=== PATIENT | female | born 1995 | race African-American/Black ===

== ENCOUNTER 2018-12-16 09:35 | Emergency (ER) | payer MEDICAID ==
[~2018-12-16] VITALS: Ht 162.6 cm; Wt 83.7 kg
[~2018-12-16 09:35] MED LIST: VENTOLIN0.09 MG IH
[2018-12-16 09:42] VITALS: BP 141/78; TEMP 98.2
[2018-12-16 10:40] LABS: COLLECTION METHOD CATHETER
[2018-12-16 10:42] LABS: EOS % 0.7 % (0-4.0); GRAN % 48.3 % (42.2-75.2); HEMATOCRIT 40.2 % (37.0-47.0); HEMOGLOBIN 13.5 g/dl (12.5-16.0); LYMPH # 1.6 (1.2-3.4); LYMPH % 38.9 % (20.0-51.0); MEAN CELL VOLUME 93 fl (80.0-100.0); MEAN CORPUSCULAR HEMOGLOBIN 31 pg (27.0-31.0); MEAN CORPUSCULAR HGB CONC 34 g/dl (33.0-37.0); MONO # 0.5 (0.1-0.6); MONO % 10.9 % (1.7-9.3); PLATELET COUNT 347 K/mm3 (130-400); RED BLOOD COUNT 4.31 M/mm3 (4.10-5.30); REDCELL DISTRIBUTION WIDTH-CV 13.3 % (11.5-14.5)
[2018-12-16 10:46] LABS: MUCOUS Present /lpf; PH 6 (5-8); URINE APPEARANCE Hazy; URINE BACTERIA None Seen /hpf; URINE BILIRUBIN Negative (NEGATIVE); URINE BLOOD 2+ (NEGATIVE); URINE COLOR Yellow; URINE GLUCOSE Negative (NEGATIVE); URINE KETONE Negative (NEGATIVE); URINE LEUKOCYTE ESTERASE Trace (NEGATIVE); URINE NITRATE Negative (NEGATIVE); URINE PROTEIN(semi-quant) Negative (NEGATIVE); URINE RBC 20-50 /hpf; URINE UROBILINOGEN Negative (NEGATIVE)
[2018-12-16] MEDS ORDERED: CEPHALEXIN500 M1 PO (10:53)
[2018-12-16 10:58] LABS: ALBUMIN 4.3 gm/dL (3.5-5.0); BILIRUBIN,TOTAL 0.7 mg/dL (0.0-1.0); CALCIUM 9.3 mg/dL (8.4-10.2); CREATININE, serum 0.89 (0.52-1.25); POTASSIUM 3.3 mmol/L (3.4-5.0); TOTAL PROTEIN 7.5 gm/dL (6.4-8.2)
[2018-12-16 11:58] VITALS: PULSE 76
== END 2018-12-16 11:58 | disposition home or self-care (01) ==
LOC: COL.ER 09:35
PROVIDERS: Emergency Medicine
DX: N39.0 Urinary tract infection, site not specified (principal); N93.8 Other specified abnormal uterine and vaginal bleeding; E87.6 Hypokalemia

== ENCOUNTER 2019-01-12 17:48 | Emergency (ER) | payer MEDICAID ==
[~2019-01-12] VITALS: Ht 165.1 cm; Wt 84.1 kg
[~2019-01-12 17:48] MED LIST changes: +CEPHALEXIN500 M1 PO
[2019-01-12 17:51] VITALS: TEMP 99.3
[2019-01-12 18:23] LABS: BASO % 0.5 % (0.0-2.0); EOS % 0.4 % (0-4.0); GRAN # 5.4 (1.4-6.5); GRAN % 73.5 % (42.2-75.2); HEMATOCRIT 37.7 % (37.0-47.0); HEMOGLOBIN 12.7 g/dl (12.5-16.0); LYMPH % 13.1 % (20.0-51.0); MEAN CELL VOLUME 93 fl (80.0-100.0); MEAN CORPUSCULAR HEMOGLOBIN 31 pg (27.0-31.0); MEAN CORPUSCULAR HGB CONC 34 g/dl (33.0-37.0); MEAN PLATELET VOLUME 9.8 fl (7.4-10.4); MONO # 0.9 (0.1-0.6); MONO % 12.2 % (1.7-9.3); PLATELET COUNT 273 K/mm3 (130-400); RED BLOOD COUNT 4.06 M/mm3 (4.10-5.30)
[2019-01-12 18:33] LABS: STREP SCREEN NEGATIVE
[2019-01-12 18:53] LABS: ALANINE AMINOTRANSFERASE 15 U/L (9-52); ALBUMIN 4.5 gm/dL (3.5-5.0); ALKALINE PHOSPHATASE 69 U/L (50-136); ANION GAP 13 mmol/L (7-16); AST,SGOT 32 U/L (15-37); BILIRUBIN,TOTAL 0.9 mg/dL (0.0-1.0); BLOOD UREA NITROGEN 12 mg/dL (7-17); C-REACTIVE PROTEIN 1.6 mg/dL (0.0-0.9); CALCIUM 9.2 mg/dL (8.4-10.2); CARBON DIOXIDE 24 mmol/L (22-30); CHLORIDE 101 mmol/L (98-107); CREATININE, serum 1.02 (0.52-1.25); GLUCOSE 86 mg/dL (74-106); POTASSIUM 3.9 mmol/L (3.4-5.0); SODIUM 139 mmol/L (137-145); TOTAL PROTEIN 7.9 gm/dL (6.4-8.2)
[2019-01-12 19:02] LABS: TROPONIN-I < 0.012 ng/mL (0.000-0.035)
[2019-01-12] MEDS ORDERED: ZITHROMAX Z PA250 MG PO (19:32)
[2019-01-12] MEDS ORDERED: PREDNISONE20 MG PO (19:32)
[2019-01-12] MEDS ORDERED: NEB MC (21:10)
[2019-01-12] MEDS ORDERED: ALBUTEROL1.25 MG/3 IH (21:10)
[2019-01-12] MEDS ORDERED: PROAIR HFA0.09 MG/AC IH (21:11)
[2019-01-12 21:20] VITALS: BP 117/61; PULSE 117
== END 2019-01-12 21:20 | disposition home or self-care (01) ==
LOC: COL.ER 17:48
PROVIDERS: Physician Assistant
DX: J45.901 Unspecified asthma with (acute) exacerbation (principal); I30.9 Acute pericarditis, unspecified
CPT/HCPCS: J1885; J7030; J8540

== ENCOUNTER 2019-01-14 18:01 | Emergency (ER) | payer MEDICAID ==
[~2019-01-14] VITALS: Ht 162.6 cm; Wt 90.9 kg
[~2019-01-14 18:01] MED LIST changes: +ALBUTEROL1.25 MG/3 IH; +NEB MC; +PREDNISONE20 MG PO; +PROAIR HFA0.09 MG/AC IH; +ZITHROMAX Z PA250 MG PO
[2019-01-14 19:03] LABS: C-REACTIVE PROTEIN 0.6 mg/dL (0.0-0.9); PROTHROMBIN TIME 12.1 SECONDS (9.7-12.8)
[2019-01-14 19:05] LABS: PARTIAL THROMBOPLASTIN TIME 29.1 SECONDS (26.0-37.0)
[2019-01-14 19:13] LABS: TROPONIN-I < 0.012 ng/mL (0.000-0.035)
[2019-01-14 19:41] LABS: BASO % 0.1 % (0.0-2.0); GRAN % 92.9 % (42.2-75.2); HEMATOCRIT 37.6 % (37.0-47.0); HEMOGLOBIN 12.7 g/dl (12.5-16.0); LYMPH # 0.5 (1.2-3.4); LYMPH % 5.1 % (20.0-51.0); MEAN CELL VOLUME 92 fl (80.0-100.0); MEAN CORPUSCULAR HEMOGLOBIN 31 pg (27.0-31.0); MEAN CORPUSCULAR HGB CONC 34 g/dl (33.0-37.0); MEAN PLATELET VOLUME 10.2 fl (7.4-10.4); MONO # 0.2 (0.1-0.6); MONO % 1.6 % (1.7-9.3); PLATELET COUNT 335 K/mm3 (130-400); RED BLOOD COUNT 4.09 M/mm3 (4.10-5.30); REDCELL DISTRIBUTION WIDTH-CV 13.2 % (11.5-14.5)
[2019-01-14 19:47] LABS: ALBUMIN 4.3 gm/dL (3.5-5.0); BILIRUBIN,TOTAL 0.5 mg/dL (0.0-1.0); CALCIUM 9.4 mg/dL (8.4-10.2); CREATININE, serum 0.88 (0.52-1.25); POTASSIUM 3.7 mmol/L (3.4-5.0); TOTAL PROTEIN 7.9 gm/dL (6.4-8.2)
[2019-01-14 21:06] LABS: LYMPHOCYTE 7 % (20.0-51.0); NEUTROPHILS 92 % (42.0-75.2)
[2019-01-15 15:41] LABS: COLLECTION METHOD CLEAN CATCH
[2019-01-15 15:54] LABS: MUCOUS Present /lpf; PH 6 (5-8); URINE APPEARANCE Hazy; URINE BACTERIA None Seen /hpf; URINE BILIRUBIN Negative (NEGATIVE); URINE BLOOD 3+ (NEGATIVE); URINE COLOR Yellow; URINE GLUCOSE Negative (NEGATIVE); URINE KETONE 1+ (NEGATIVE); URINE LEUKOCYTE ESTERASE Negative (NEGATIVE); URINE NITRATE Negative (NEGATIVE); URINE PROTEIN(semi-quant) 1+ (NEGATIVE); URINE RBC >50 /hpf; URINE UROBILINOGEN Negative (NEGATIVE)
[2019-01-15 16:00] LABS: TRICYCLIC ANTIDEPRESS URINE NEGATIVE
[2019-01-16 10:00] VITALS: BP 145/88; PULSE 64; TEMP 98.5
== END 2019-01-16 10:10 ==
LOC: COL.ER 18:01
PROVIDERS: Emergency Medicine; Family Medicine
DX: R07.89 Other chest pain (principal); F31.9 Bipolar disorder, unspecified; F17.210 Nicotine dependence, cigarettes, uncomplicated; Z90.89 Acquired absence of other organs
CPT/HCPCS: J1200; J1630; J1885; J2060; J3010

== ENCOUNTER 2019-03-17 16:51 | Emergency (ER) | payer MEDICAID ==
[~2019-03-17] VITALS: Ht 162.6 cm; Wt 86.4 kg
[2019-03-17 16:54] VITALS: TEMP 98.7
[2019-03-17 17:30] LABS: BASO # 0.1 (0.0-0.2); BASO % 0.8 % (0.0-2.0); EOS % 0.3 % (0-4.0); GRAN # 3.5 (1.4-6.5); GRAN % 57.6 % (42.2-75.2); HEMATOCRIT 39.7 % (37.0-47.0); HEMOGLOBIN 13.6 g/dl (12.5-16.0); LYMPH # 1.9 (1.2-3.4); LYMPH % 32.1 % (20.0-51.0); MEAN CELL VOLUME 92 fl (80.0-100.0); MEAN CORPUSCULAR HEMOGLOBIN 31 pg (27.0-31.0); MEAN CORPUSCULAR HGB CONC 34 g/dl (33.0-37.0); MEAN PLATELET VOLUME 9.5 fl (7.4-10.4); MONO # 0.5 (0.1-0.6); PLATELET COUNT 368 K/mm3 (130-400); RED BLOOD COUNT 4.33 M/mm3 (4.10-5.30); REDCELL DISTRIBUTION WIDTH-CV 13.4 % (11.5-14.5)
[2019-03-17 17:43] LABS: ALANINE AMINOTRANSFERASE 10 U/L (9-52); ALBUMIN 4.2 gm/dL (3.5-5.0); ALKALINE PHOSPHATASE 52 U/L (50-136); ANION GAP 14 mmol/L (7-16); AST,SGOT 29 U/L (15-37); BILIRUBIN,TOTAL 0.6 mg/dL (0.0-1.0); BLOOD UREA NITROGEN 17 mg/dL (7-17); CARBON DIOXIDE 22 mmol/L (22-30); CHLORIDE 104 mmol/L (98-107); CREATININE, serum 0.77 (0.52-1.25); GLUCOSE 88 mg/dL (74-106); LIPASE 270 U/L (23-300); POTASSIUM 3.4 mmol/L (3.4-5.0); SODIUM 139 mmol/L (137-145); TOTAL PROTEIN 7.2 gm/dL (6.4-8.2)
[2019-03-17 18:14] VITALS: BP 112/60; PULSE 97
[2019-03-17 18:20] LABS: C-REACTIVE PROTEIN < 0.5 mg/dL (0.0-0.9); TROPONIN-I < 0.012 ng/mL (0.000-0.035)
== END 2019-03-17 17:00 | disposition left against medical advice (07) ==
LOC: COL.ER 16:51
PROVIDERS: Emergency Medicine
DX: R07.89 Other chest pain (principal); F17.210 Nicotine dependence, cigarettes, uncomplicated

== ENCOUNTER → 2019-03-24 | Outpatient (CLI) | payer MEDICAID ==
[2019-03-24 17:09] LABS: COLLECTION METHOD CLEAN CATCH
[2019-03-24 17:38] LABS: BASO % 0.9 % (0.0-2.0); EOS # 0.1 (0.0-0.7); EOS % 1.1 % (0-4.0); GRAN # 2.2 (1.4-6.5); GRAN % 51.4 % (42.2-75.2); HEMATOCRIT 37.2 % (37.0-47.0); HEMOGLOBIN 12.7 g/dl (12.5-16.0); LYMPH # 1.6 (1.2-3.4); LYMPH % 35.8 % (20.0-51.0); MEAN CELL VOLUME 93 fl (80.0-100.0); MEAN CORPUSCULAR HEMOGLOBIN 32 pg (27.0-31.0); MEAN CORPUSCULAR HGB CONC 34 g/dl (33.0-37.0); MEAN PLATELET VOLUME 10.4 fl (7.4-10.4); MONO # 0.5 (0.1-0.6); MONO % 10.6 % (1.7-9.3); PLATELET COUNT 274 K/mm3 (130-400); RED BLOOD COUNT 4.02 M/mm3 (4.10-5.30); REDCELL DISTRIBUTION WIDTH-CV 13.8 % (11.5-14.5)
[2019-03-24 17:43] LABS: MUCOUS Present /lpf; PH 6 (5-8); URINE APPEARANCE Cloudy; URINE BACTERIA Rare /hpf; URINE BILIRUBIN Negative (NEGATIVE); URINE BLOOD Negative (NEGATIVE); URINE COLOR Yellow; URINE GLUCOSE Negative (NEGATIVE); URINE KETONE Negative (NEGATIVE); URINE LEUKOCYTE ESTERASE Negative (NEGATIVE); URINE NITRATE Negative (NEGATIVE); URINE PROTEIN(semi-quant) Negative (NEGATIVE)
[2019-03-24 17:57] LABS: ALBUMIN 3.9 gm/dL (3.5-5.0); BILIRUBIN,TOTAL 0.7 mg/dL (0.0-1.0); CALCIUM 8.7 mg/dL (8.4-10.2); CREATININE, serum 0.87 (0.52-1.25); POTASSIUM 3.2 mmol/L (3.4-5.0); TOTAL PROTEIN 6.8 gm/dL (6.4-8.2)
== END ==
LOC: COL.LAB 16:28
PROVIDERS: Family Medicine
DX: R10.2 Pelvic and perineal pain (principal)

== ENCOUNTER 2019-05-09 22:46 | Emergency (ER) | payer MEDICAID ==
[2019-05-09] MEDS ORDERED: DESYREL 50MG50 MG PO (22:49)
[2019-05-09 22:50] VITALS: TEMP 98.9
[2019-05-09 23:39] LABS: COLLECTION METHOD CLEAN CATCH
[2019-05-09 23:44] LABS: PH 7 (5-8); SQUAMOUS EPITHELIAL 0-2 /hpf; URINE APPEARANCE Clear; URINE BACTERIA None Seen /hpf; URINE BILIRUBIN Negative (NEGATIVE); URINE BLOOD Negative (NEGATIVE); URINE COLOR Straw; URINE GLUCOSE Negative (NEGATIVE); URINE KETONE Negative (NEGATIVE); URINE LEUKOCYTE ESTERASE Negative (NEGATIVE); URINE NITRATE Negative (NEGATIVE); URINE PROTEIN(semi-quant) Negative (NEGATIVE); URINE RBC 0-2 /hpf; URINE UROBILINOGEN Negative (NEGATIVE)
[2019-05-10 00:03] LABS: BASO # 0.1 (0.0-0.2); BASO % 0.9 % (0.0-2.0); EOS # 0.1 (0.0-0.7); EOS % 1.1 % (0-4.0); GRAN # 2.9 (1.4-6.5); HEMATOCRIT 37.8 % (37.0-47.0); HEMOGLOBIN 13.1 g/dl (12.5-16.0); LYMPH # 4.2 (1.2-3.4); LYMPH % 52.6 % (20.0-51.0); MEAN CELL VOLUME 90 fl (80.0-100.0); MEAN CORPUSCULAR HEMOGLOBIN 31 pg (27.0-31.0); MEAN CORPUSCULAR HGB CONC 35 g/dl (33.0-37.0); MEAN PLATELET VOLUME 9.7 fl (7.4-10.4); MONO # 0.6 (0.1-0.6); MONO % 8.1 % (1.7-9.3); PLATELET COUNT 376 K/mm3 (130-400); RED BLOOD COUNT 4.18 M/mm3 (4.10-5.30); REDCELL DISTRIBUTION WIDTH-CV 13.5 % (11.5-14.5)
[2019-05-10 00:13] LABS: TRICYCLIC ANTIDEPRESS URINE NEGATIVE
[2019-05-10 00:14] LABS: ACETAMINOPHEN < 10 ug/mL (10-30); ALANINE AMINOTRANSFERASE 25 U/L (9-52); ALBUMIN 4.7 gm/dL (3.5-5.0); ALCOHOL(ethanol),MEDICAL 242 mg/dL; ALKALINE PHOSPHATASE 59 U/L (50-136); ANION GAP 17 mmol/L (7-16); AST,SGOT 39 U/L (15-37); BILIRUBIN,TOTAL 0.2 mg/dL (0.0-1.0); BLOOD UREA NITROGEN 12 mg/dL (7-17); CALCIUM 9.4 mg/dL (8.4-10.2); CARBON DIOXIDE 18 mmol/L (22-30); CHLORIDE 108 mmol/L (98-107); CREATININE, serum 0.87 (0.52-1.25); GLUCOSE 84 mg/dL (74-106); POTASSIUM 3.6 mmol/L (3.4-5.0); SALICYLATE < 1.0 mg/dL; SODIUM 143 mmol/L (137-145)
[2019-05-10 01:17] VITALS: PULSE 106
== END 2019-05-10 01:17 | disposition home or self-care (01) ==
LOC: COL.ER 22:46
PROVIDERS: Emergency Medicine
DX: F41.9 Anxiety disorder, unspecified (principal); R06.02 Shortness of breath; F17.210 Nicotine dependence, cigarettes, uncomplicated; J45.909 Unspecified asthma, uncomplicated
CPT/HCPCS: J2060; J7030

== ENCOUNTER 2022-04-30 13:26 | Emergency (ER) | payer MEDICAID ==
[~2022-04-30] VITALS: Ht 162.6 cm; Wt 102.3 kg
[~2022-04-30 13:26] MED LIST changes: +DESYREL 50MG50 MG PO
[2022-04-30 15:31] LABS: COLLECTION METHOD CLEAN CATCH
[2022-04-30 15:40] LABS: MUCOUS Present (NOT PRESENT); URINE BACTERIA Rare /hpf (NONE SEEN); URINE RBC 0-2 /hpf (0-2)
[2022-04-30 15:49] VITALS: BP 121/73; PULSE 97; TEMP 98.2
[2022-04-30 16:00] LABS: PH 5.5 (5.0-8.5); URINE APPEARANCE Clear (CLEAR/HAZY); URINE BLOOD Negative (NEGATIVE); URINE COLOR Yellow (YELLOW); URINE GLUCOSE Negative (NEGATIVE); URINE KETONE 1+ (NEGATIVE); URINE NITRATE Negative (NEGATIVE); URINE PROTEIN(semi-quant) Negative (NEGATIVE); URINE UROBILINOGEN 0.2 E.U/dL (0.2-1.0)
== END 2022-04-30 16:03 | disposition home or self-care (01) ==
LOC: COL.ER 13:26
PROVIDERS: Physician Assistant
DX: O9A.212 Injury, poisoning and certain other consequences of external causes complicating pregnancy, second trimester (principal); S39.91XA Unspecified injury of abdomen, initial encounter; Z28.310 Unvaccinated for COVID-19; Z3A.17 17 weeks gestation of pregnancy; Y04.0XXA Assault by unarmed brawl or fight, initial encounter

== ENCOUNTER 2022-06-22 17:27 | Outpatient (CLI) | payer MEDICAID ==
[~2022-06-22] VITALS: Ht 162.6 cm; Wt 103.8 kg
[2022-06-22 18:00] VITALS: BP 120/79; PULSE 93; TEMP 99.1
[2022-06-22 18:30] VITALS: BP 140/77; PULSE 96
--- NOTE | 2022-06-22 18:30 | NUR ---
FHR TRACING INTERMITTENTLY DUE TO MOVEMENT. THIS RN AT BEDSIDE PALPATING PT ABDOMEN, ATTEMPTING TO READJUST EXTERNAL MONITORS x2.
--- NOTE | 2022-06-22 18:31 | NUR ---
[age] - 26 YO AT 25.0 WEEKS GESTATION TO [facility] FROM [facility], ESCORTED BY REFRIGERATOR MOVER. PT REPORTS DECREASED MOVEMENT SINCE SHE'S BEEN INCARCERATED WEDNESDAY. PT SAYS SHE HAS FELT NO MOVEMENT SINCE SHE WAS "ROUGHED UP" BY OFFICERS AT THE [facility] ABOUT 10-11 THIS MORNING. PT REPORTS THAT SHE FELL FLAT ON HER STOMACH AND OFFICERS HAD HER HANDS BEHIND HER BACK. PT IS UNSURE IF SHE HAS HAD ANY BLEEDING TODAY, STATES THAT SHE HAS NOT USED THE BATHROOM AT ALL TODAY, BUT THAT SHE COUGHED AND LEAKED SOME URINE SO SHE HAD TO CHANGE HER UNDERWEAR, BUT DID NOT NOTICE ANY BLEEDING, OFFICER STATES THAT THEIR UNDERWEAR IS BROWN. PT REPORTS PAIN IN HER ABD ON BOTH SIDES OF HER GROIN THAT HAS BEEN THERE OVER A WEEK AND WAS SEEN IN [facility] FOR THAT. EFM ON, VISIBLE MOVEMENT IMMEDIATELY SEEN, PT RECOGNIZES MOVEMENT
[2022-06-22 18:58] VITALS: BP 139/65; PULSE 86
--- NOTE | 2022-06-22 18:58 | NUR ---
[id number]: FHR TRACING INTERMITTENTLY DUE TO MOVEMENT. THIS NURSE AT BEDSIDE PALPATING PT ABDOMEN, ATTEMTPING TO READJUST EXTERNAL MONITORS x2. 1857: PT OFF EXTERNAL MONITORS x2 AND CHANGED INTO PERSONAL CLOTHING. POC DISCUSSED WITH PT AND ACCOUNTING FILE CLERK PRESENT AT PT BEDSIDE. PT VERBALIZED UNDERSTANDING AND AGREEMENT. PT DENIED QUESTIONS, CONCERNS, AND NEEDS AT THIS TIME.
--- NOTE | 2022-06-22 19:45 | NUR ---
PT OFF EXTERNAL MONITORS x2 AND CHANGED INTO PERSONAL CLOTHES. POC FOR DISCHARGE DISCUSSED WITH PT AND ENVIRONMENTAL HEALTH INSPECTOR PRESENT AT BEDSIDE. PT VERBALIZED UNDERSTANDING AND AGREEMENT OF POC. QUESTIONS, CONCERNS, AND NEEDS ENCOURAGED. PT DENIED QUESTIONS, CONCERNS, AND NEEDS AT THIS TIME. PT AMBULATED OFF UNIT WITH DISCHARGE PAPERWORK IN HAND, ACCOMPANIED BY ENVIRONMENTAL HEALTH INSPECTOR ASSIGNED TO PT.
== END 2022-06-22 19:45 ==
LOC: LDRO 17:27
DX: O36.8120 Decreased fetal movements, second trimester, not applicable or unspecified (principal); Z3A.25 25 weeks gestation of pregnancy